=== PATIENT | male | born 1970 | race Caucasian/White ===

== ENCOUNTER → 2019-07-11 | Outpatient (CLI) | payer BC | END | disposition home or self-care (01) | LOC: CFH 10:41 | PROVIDERS: ATTEND Internal Medicine Cardiovascular Disease | DX: I70.0 Atherosclerosis of aorta (principal); R00.2 Palpitations | CPT/HCPCS: 93306 ==

== ENCOUNTER 2019-07-26 08:37 | Day surgery (SDC) | payer BC ==
[~2019-07-26] VITALS: Ht 193 cm; Wt 98.8 kg
[2019-07-26 09:50] VITALS: BP 138/70
[2019-07-26] MEDS ORDERED: ISOPROTERENOL 0.2MG/ML, 1ML ONE (12:10)
== END 2019-07-26 12:30 | disposition home or self-care (01) ==
LOC: CACL 08:37
PROVIDERS: ATTEND Internal Medicine Cardiovascular Disease
DX: R55 Syncope and collapse (principal); R00.2 Palpitations; K58.9 Irritable bowel syndrome, unspecified; E66.3 Overweight; Z68.25 Body mass index [BMI] 25.0-25.9, adult; Z90.49 Acquired absence of other specified parts of digestive tract; Z82.49 Family history of ischemic heart disease and other diseases of the circulatory system; Z80.9 Family history of malignant neoplasm, unspecified
CPT/HCPCS: 93660